=== PATIENT | male | born 1950 | race African-American/Black ===

== ENCOUNTER 2017-05-07 00:43 | Observation (INO) | payer MEDICARE ==
[~2017-05-07] VITALS: Ht 170.2 cm; Wt 100.0 kg
[2017-05-07] VITALS (11 sets, daily range): BP systolic 138–191; BP diastolic 78–102; PULSE 43–62; RESP 16–20; TEMP 97.5–98.4; O2SAT 95–99
[~2017-05-07 00:43] MED LIST: ASPI81TA82 PO; HYZA100T6 PO; KLOR20TA6 PO; SOTA160T16 PO
[2017-05-07] MEDS ORDERED: LOSA100T2 PO (00:59)
[2017-05-07] MEDS ORDERED: ASPI81CH CHEW (00:59)
[2017-05-07] MEDS ORDERED: SOTA120T PO (00:59)
[2017-05-07] MEDS ORDERED: ASPIRIN 81 MG CHEW TAB PO ONE (01:00)
[2017-05-07] MEDS ORDERED: SODIUM CHLORIDE 0.9% FLUSH 10 ML FLUSH IVF PRN (01:00)
[2017-05-07] MEDS ORDERED: NITROGLYCERIN 2% OINT 1 GM PACKET TOP ONE (01:00)
[2017-05-07] MEDS ORDERED: NITROGLYCERIN 0.4 MG SL 25 TABS/BTL SL ONE (01:00)
[2017-05-07 01:18] LABS: AUTOMATED NEUTROPHIL # 3.9 TH/MM3 (1.8-7.7); BASOPHIL # 0.1 TH/MM3 (0-0.2); BASOPHIL % 0.7 % (0.0-2.0); EOSINOPHIL # 0.4 TH/MM3 (0-0.4); HEMATOCRIT 43.4 % (39.0-51.0); LYMPH % 27.1 % (9.0-44.0); MEAN CELL VOLUME 76.9 FL (80.0-100.0); MEAN CORPUSCULAR HEMOGLOBIN 26.8 PG (27.0-34.0); MEAN CORPUSCULAR HGB CONC 34.8 % (32.0-36.0); MONO % 12.3 % (0.0-8.0); NEUT % 53.9 % (16.0-70.0); PLATELET COUNT 163 TH/MM3 (150-450); RED BLOOD COUNT 5.64 MIL/MM3 (4.50-5.90); RED CELL DISTRIBUTION WIDTH 14.4 % (11.6-17.2); WHITE BLOOD COUNT 7.2 TH/MM3 (4.0-11.0)
[2017-05-07 01:19] LABS: HEMO FLAGS AUTO DIFF
--- NOTE | 2017-05-07 01:25 | RADRPT ---
EXAM DATE/TIME: 05/07/2017 01:22 [facility] COMPARISON: CHEST SINGLE AP, July 16, 2015, 3:29. INDICATIONS : Chest pain. MEDICAL HISTORY : Hypertension. AFIB SURGICAL HISTORY : None. ENCOUNTER: Initial ACUITY: 1 day PAIN SCORE: 7/10 LOCATION: Bilateral chest FINDINGS: A single view of the chest demonstrates the lungs to be symmetrically aerated without evidence of mas s, infiltrate or effusion. The cardiomediastinal contours are unremarkable. Osseous structures are intact. CONCLUSION: Normal examination. Willie Dempsey MD on May 07, 2017 at 1:23 Board Certified Radiologist. This report was verified electronically.
[2017-05-07 01:35] LABS: APTT (PATIENT) 27.5 SEC (24.3-30.1); PROTHROMBIN TIME - PATIENT 10.5 SEC (9.8-11.6)
[2017-05-07 01:42] LABS: ALKALINE PHOSPHATASE 73 U/L (45-117); ALT (GPT) 33 U/L (12-78); ANION GAP 6 MEQ/L (5-15); AST (GOT) 26 U/L (15-37); BICARBONATE 33.2 MEQ/L (21.0-32.0); BLOOD UREA NITROGEN 11 MG/DL (7-18); CHLORIDE 104 MEQ/L (98-107); CREATINE KINASE 100 U/L (39-308); GLOMERULAR FILTRATION RATE 71 ML/MIN (>89); POTASSIUM 3.5 MEQ/L (3.5-5.1); SODIUM (NA) 143 MEQ/L (136-145); TOTAL BILIRUBIN ADULT 1.3 MG/DL (0.2-1.0)
[2017-05-07 01:47] LABS: PLATELET ESTIMATE SMEAR NORMAL (NORMAL); PLATELET MORPHOLOGY NORMAL (NORMAL); SCAN/DIFF AUTO DIFF CONFIRMED
--- NOTE | 2017-05-07 02:39 | PD ---
HPI Chief Complaint: Chest Pain Time Seen by Provider: 00:56 Travel History International Travel<30 days: No Contact w/Intl Traveler<30days: No Traveled to known affect area: No History of Present Illness HPI The patient is a 66 year old male who presents to the [facility] emergency department with a history of chest pain that he reports began each morning when he awakened on Friday and then Friday. He reports that this evening the pain again awoke him from sound sleep. He reports that spontaneously the pain resolved previously. He reports that the pain as a pressure sensation in the center of his chest. He reports having a tingling sensation intermittently in the left arm associated with it. He denies having any shortness of breath. He denies having any diaphoresis or nausea. He reports that he was able to work over the last 2 days as well as exercise by walking without experiencing the chest pain recurrence. He denies any history of coronary artery disease. He does however report having a history of atrial fibrillation. He does take low- dose aspirin daily. The patient reports that the pain is worse with taking a deep breath. He denies having any alleviating factors. The patient denies any recent fevers, cough, congestion, neck pain, abdominal pain, vomiting, diarrhea , urinary symptoms, or neurologic symptoms. PFSH Past Medical History Narrative Medical The patient's past medical history is significant for paroxysmal atrial fibrillation, hypertension. The patient denies any prior history of hyperlipidemia or diabetes mellitus. The patient reports that he last had a stress test done many years ago. 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 Hx Anticoagulant Therapy: Yes (ASPIRIN) Atrial Fibrillation: Yes Heart Rhythm Problems: Yes Cardiovascular Problems: Yes Diminished Hearing: No Hypertension: Yes Immunizations Current: Yes Tetanus Vaccination: Unknown Influenza Vaccination: No Past Surgical History Narrative Surgical The patient's past surgical history is reportedly none. Surgical History: No Previous Surgery Social History Alcohol Use: No Tobacco Use: No (QUIT 30 YEARS AGO) Substance Use: No Allergies-Medications (Allergen,Severity, Reaction): Coded Allergies: No Known Allergies (Unverified , 05/07/17) Reported Meds & Prescriptions Reported Meds & Active Scripts Active Reported Sotalol (Sotalol HCl) 120 Mg Tab 120 Mg PO DAILY Losartan-Hydrochlorothiazide 100-25 Mg Tab 1 Tab PO DAILY Aspirin 81 Mg Chew 81 Mg CHEW DAILY Review of Systems Except as stated in HPI: all other systems reviewed are Neg General / Constitutional: No: Fever Eyes: No: Visual changes HENT: No: Headaches Cardiovascular: Positive: Chest Pain or Discomfort, No: Diaphoresis, Dyspnea on exertion Respiratory: No: Cough, Shortness of Breath Gastrointestinal: No: Abdominal Pain Genitourinary: No: Dysuria Musculoskeletal: No: Pain Skin: No Rash Neurologic: Positive: Paresthesia (left hand), No: Weakness, Focal Abnormalities, Change in Mentation, Slurred Speech Psychiatric: No: Depression Endocrine: No: Polydipsia Hematologic/Lymphatic: No: Easy Bruising Physical Exam Narrative General: The patient is a well-developed well-nourished male in no acute distress. Head and Neck exam: Head is normocephalic atraumatic. Eyes: EOMI, pupils are equal round and reactive to light. Nose: Midline septum with pink mucous membranes Mouth: Dentition unremarkable. Moist mucus membranes. Posterior oropharynx is not erythematous. No tonsillar hypertrophy. Uvula midline. Airway patent. Neck: No palpable lymphadenopathy. No nuchal rigidity. No thyromegaly. Cardiovascular: Regular rate and rhythm without murmurs, gallops, or rubs. No pulse deficit to the extremities. Lungs: Clear to auscultation bilaterally. No wheezes, rhonchi, or rales. Abdomen: Soft, without tenderness to palpation in all 4 quadrants of the abdomen. No guarding, rebound, or rigidity. Normal bowel sounds are audible. No tenderness on palpation of McBurney's point. Negative Mendoza sign. Extremities: No clubbing, cyanosis, or edema. 2+ pulses in all 4 extremities. No calf tenderness on palpation. Back: No costovertebral angle tenderness to palpation. Neurologic Exam: Grossly nonfocal. Skin Exam: No rash noted. Intact skin that is warm and dry. Data Data Last Documented VS Vital Signs Date Time Temp Pulse Resp B/P Pulse Ox O2 Delivery O2 Flow Rate FiO2 05/07/17 00:59 58 16 163/85 97 Room Air 05/07/17 00:45 98.4 Orders Electrocardiogram (05/07/17 00:56) B-Type Natriuretic Peptide (05/07/17 00:56) Ckmb (Isoenzyme) Profile (05/07/17 00:56) Complete Blood Count With Diff (05/07/17 00:56) Comprehensive Metabolic Panel (05/07/17 00:56) Magnesium (Mg) (05/07/17 00:56) Prothrombin Time / Inr (Pt) (05/07/17 00:56) Act Partial Throm Time (Ptt) (05/07/17 00:56) Troponin I (05/07/17 00:56) Lipase (05/07/17 00:56) Chest, Single Ap (05/07/17 00:56) Ecg Monitoring (05/07/17 00:56) Bilateral Bp Monitoring (05/07/17 00:56) Iv Access Insert/Monitor (05/07/17 00:56) Oximetry (05/07/17 00:56) Oxygen Administration (05/07/17 00:56) Aspirin Chew (Aspirin Chew) (05/07/17 01:00) Nitroglycerin 2% Oint (Nitroglycerin 2% (05/07/17 01:00) Sodium Chloride 0.9% Flush (Ns Flush) (05/07/17 01:00) Nitroglycerin Sl (Nitrostat Sl) (05/07/17 01:00) Labs Laboratory Tests Test 05/07/17 00:55 White Blood Count 7.2 TH/MM3 Red Blood Count 5.64 MIL/MM3 Hemoglobin 15.1 GM/DL Hematocrit 43.4 % Mean Corpuscular Volume 76.9 FL Mean Corpuscular Hemoglobin 26.8 PG Mean Corpuscular Hemoglobin 34.8 % Concent Red Cell Distribution Width 14.4 % Platelet Count 163 TH/MM3 Mean Platelet Volume 9.6 FL Neutrophils (%) (Auto) 53.9 % Lymphocytes (%) (Auto) 27.1 % Monocytes (%) (Auto) 12.3 % Eosinophils (%) (Auto) 6.0 % Basophils (%) (Auto) 0.7 % Neutrophils # (Auto) 3.9 TH/MM3 Lymphocytes # (Auto) 2.0 TH/MM3 Monocytes # (Auto) 0.9 TH/MM3 Eosinophils # (Auto) 0.4 TH/MM3 Basophils # (Auto) 0.1 TH/MM3 CBC Comment AUTO DIFF Differential Comment AUTO DIFF CONFIRMED Platelet Estimate NORMAL Platelet Morphology Comment NORMAL Red Cell Morphology Comment NORMAL Prothrombin Time 10.5 SEC Prothromb Time International 1.0 RATIO Ratio Activated Partial 27.5 SEC Thromboplast Time Sodium Level 143 MEQ/L Potassium Level 3.5 MEQ/L Chloride Level 104 MEQ/L Carbon Dioxide Level 33.2 MEQ/L Anion Gap 6 MEQ/L Blood Urea Nitrogen 11 MG/DL Creatinine 1.23 MG/DL Estimat Glomerular Filtration 71 ML/MIN Rate Random Glucose 119 MG/DL Calcium Level 8.4 MG/DL Magnesium Level 2.0 MG/DL Total Bilirubin 1.3 MG/DL Aspartate Amino Transf 26 U/L (AST/SGOT) Alanine Aminotransferase 33 U/L (ALT/SGPT) Alkaline Phosphatase 73 U/L Total Creatine Kinase 100 U/L Troponin I LESS THAN 0.02 NG/ML B-Type Natriuretic Peptide 52 PG/ML Total Protein 6.8 GM/DL Albumin 3.5 GM/DL Lipase 134 U/L [facility] Medical Decision Making Medical Screen Exam Complete: Yes Emergency Medical Condition: Yes Medical Record Reviewed: Yes Interpretation(s) Last Impressions Chest X-Ray 05/07/17 0056 Signed Impressions: Service Date/Time: Sunday, May 07, 2017 01:22 - CONCLUSION: Normal examination. Willie Dempsey MD Differential Diagnosis Acute coronary syndrome, versus acid reflux, versus anxiety disorder, versus pneumothorax Narrative Course During the course of the patients emergency department visit, the patients history, examination, and differential diagnosis were reviewed with the patient. The patient had IV access obtained and blood work sent for analysis. The patient was placed on a line installation supervisor with oximetry and blood pressure monitoring. An EKG was done on arrival. The patient's EKG reveals a sinus rhythm with occasional supraventricular premature complexes. The patient's heart rate is 68. QRS duration 90 ms, QTC 411 ms, no acute ST segment elevation or depression. T waves are inverted in V1. The patient was initially provided aspirin 162 mg by mouth 1, nitroglycerin sublingual 1 when necessary chest pain, nitroglycerin 1 inch the chest wall. The patients laboratory studies were reviewed and remarkable for a white count of 7.2, hemoglobin 15.1, platelets 163 with 12.3 monocytes, eosinophils 6.0, CMP is remarkable for CO2 of 33.2, glucose 119, calcium 8.4, total bilirubin 1.3 , initial set of cardiac enzymes are negative, lipase 134, BNP is 52, PT PTT within normal limits. Radiology studies were reviewed and remarkable for a chest x-ray that shows no acute abnormality. The patient was agreeable with the plan to be admitted to the chest pain center for rule out serial cardiac enzyme protocol followed by stress testing. The patients results were discussed with the patient, including the plan of care. I explained that further testing and/ or monitoring is indicated based on the patients history, examination, and/ or laboratory findings. Therefore, I recommended admission for additional evaluation. The patient expressed understanding and was agreeable with this plan. The patient was admitted to the hospital in stable condition and sent to a bed under the care of the chest pain center. Diagnosis Primary Impression: Chest pain, rule out acute myocardial infarction Admitting Information Admitting Physician Requests: Observation Brea Pollard MD May 07, 2017 02:39
[2017-05-07] MEDS ORDERED: ACETAMINOPHEN 500 MG CPLT PO PRN (03:45)
[2017-05-07] MEDS ORDERED: ONDANSETRON HCL 4 MG/2 ML VIAL IV PRN (03:45)
[2017-05-07] MEDS ORDERED: SODIUM CHLORIDE 0.9% FLUSH 10 ML FLUSH IV FLUSH PRN (03:45)
[2017-05-07 05:08] LABS: CREATINE KINASE 79 U/L (39-308)
[2017-05-07 07:38] LABS: CREATINE KINASE 75 U/L (39-308)
[2017-05-07] MEDS ORDERED: PILL SPLITTER OTHER PRN (07:45)
[2017-05-07] MEDS ORDERED: HYDROCHLOROTHIAZIDE 25 MG TAB PO SCH (09:00)
[2017-05-07] MEDS ORDERED: SOTALOL HCL 80 MG TAB PO SCH (09:00)
[2017-05-07] MEDS ORDERED: LOSARTAN 50 MG TAB PO SCH (09:00)
[2017-05-07] MEDS ORDERED: SODIUM CHLORIDE 0.9% FLUSH 10 ML FLUSH IV FLUSH SCH (09:00)
--- NOTE | 2017-05-07 09:12 | HHI.HP ---
[facility] Primary Care Physician Mariangel Demarco MD Chief Complaint Chest pain History of Present Illness This is a 66-year-old male with history of paroxysmal atrial fibrillation and hypertension that presents with a complaint of 2 days of intermittent chest discomfort. He states that they would occur lasting just a couple seconds at a time. Found nothing in particular to bring on the discomforts. Eighth his last stress test was several years ago. He had no associated shortness breath, nausea or diaphoresis with the symptoms. He follows Dr. leal for his paroxysmal atrial fibrillation. Review of Systems General: Patient denies fevers, chills recent, and recent travel HEENT: Patient denies headache, sore throat, difficulty swallowing. Cardiovascular: Has the chest discomfort as mentioned above. Denies sensation of heart beating rapidly or irregularly. No syncope. Denies diaphoresis. Respiratory: Denies shortness of breath or inspirational chest discomfort. Denies coughing wheezing or hemoptysis. GI: Patient denies nausea, vomiting, diarrhea, abdominal pain, bloody stools. Musculoskeletal: Patient denies joint pain or edema. Denies calf pain or edema. Neurovascular: Patient denies numbness, tingling, weakness in extremities. Denies headache. Endocrine: Denies polyuria and polydipsia. Hematologic: Denies easy bruising. Skin: Denies rash or itching. Past Family Social History Allergies: Coded Allergies: No Known Allergies (Unverified , 05/07/17) Past Medical History Paroxysmal atrial fibrillation. Hypertension. Denies hyperlipidemia, diabetes , and known CAD. Past Surgical History Noncontributory. Reported Medications Reported Meds & Active Scripts Active Reported Sotalol (Sotalol HCl) 120 Mg Tab 120 Mg PO DAILY Losartan-Hydrochlorothiazide 100-25 Mg Tab 1 Tab PO DAILY Aspirin 81 Mg Chew 81 Mg CHEW DAILY Active Ordered Medications Current Medications Medications (Trade) Dose Ordered Sig/Rafaela Route Start Time Stop Time Status Last Admin (NS Flush) 2 ml UNSCH PRN IV FLUSH 05/07/17 03:45 (NS Flush) 2 ml BID IV FLUSH 05/07/17 09:00 05/07/17 08:52 (Tylenol) 500 mg Q4H PRN PO 05/07/17 03:45 (Zofran Inj) 4 mg Q6H PRN IV 05/07/17 03:45 (Cozaar) 100 mg DAILY PO 05/07/17 09:00 05/07/17 08:53 (Betapace) 120 mg DAILY PO 05/07/17 09:00 05/07/17 08:52 (Pill Splitter) 1 ea UNSCH PRN OTHER 05/07/17 07:45 (Hydrodiuril) 25 mg DAILY PO 05/07/17 09:00 05/07/17 08:53 Family History Denies family history of CAD. Social History Patient quit smoking about 30 years ago. Denies alcohol or illicit drugs. Physical Exam Vital Signs Vital Signs Date Time Temp Pulse Resp B/P Pulse Ox O2 Delivery O2 Flow Rate FiO2 05/07/17 08:01 98 21 05/07/17 07:46 97.6 52 16 148/93 99 05/07/17 05:17 97.7 58 20 156/87 97 05/07/17 04:00 48 16 156/86 97 Room Air 05/07/17 03:46 97 05/07/17 02:00 57 16 155/78 95 Room Air 05/07/17 00:59 58 16 163/85 97 Room Air 05/07/17 00:53 61 16 189/102 96 05/07/17 00:45 98.4 62 16 191/97 98 Physical Exam GENERAL: This is a well-nourished, well-developed patient, in no apparent distress. Patient speaks in clear complete sentences. Patient is pleasant. HEENT: Head is atraumatic and normocephalic. Neck is supple without lymphadenopathy and trachea is midline. No JVD or carotid bruits. CARDIOVASCULAR: Regular rate and rhythm without murmurs, gallops, or rubs. RESPIRATORY: Clear to auscultation. Breath sounds equal bilaterally. No wheezes , rales, or rhonchi. Chest wall is nontender. No use of accessory muscles. GASTROINTESTINAL: Abdomen is nontender, nondistended. Abdomen soft. No obvious pulsatile mass or bruit. No CVA tenderness. Strong femoral pulses bilaterally. Normal bowel sounds in all quadrants. MUSCULOSKELETAL: Patient is moving upper and lower extremities freely. No calf tenderness or edema, no Homans sign. Strong pulses in upper and lower extremities. NEUROLOGICAL: Patient is alert and oriented. Cranial nerves 2-12 are grossly intact. No focal deficits and speech is clear. SKIN: No rash and turgor is normal. Laboratory Laboratory Tests Test 05/07/17 05/07/17 05/07/17 00:55 04:30 06:40 White Blood Count 7.2 Red Blood Count 5.64 Hemoglobin 15.1 Hematocrit 43.4 Mean Corpuscular Volume 76.9 Mean Corpuscular Hemoglobin 26.8 Mean Corpuscular Hemoglobin 34.8 Concent Red Cell Distribution Width 14.4 Platelet Count 163 Mean Platelet Volume 9.6 Neutrophils (%) (Auto) 53.9 Lymphocytes (%) (Auto) 27.1 Monocytes (%) (Auto) 12.3 Eosinophils (%) (Auto) 6.0 Basophils (%) (Auto) 0.7 Neutrophils # (Auto) 3.9 Lymphocytes # (Auto) 2.0 Monocytes # (Auto) 0.9 Eosinophils # (Auto) 0.4 Basophils # (Auto) 0.1 CBC Comment AUTO DIFF Differential Comment AUTO DIFF CONFIRMED Platelet Estimate NORMAL Platelet Morphology Comment NORMAL Red Cell Morphology Comment NORMAL Prothrombin Time 10.5 Prothromb Time International 1.0 Ratio Activated Partial 27.5 Thromboplast Time Sodium Level 143 Potassium Level 3.5 Chloride Level 104 Carbon Dioxide Level 33.2 Anion Gap 6 Blood Urea Nitrogen 11 Creatinine 1.23 Estimat Glomerular Filtration 71 Rate Random Glucose 119 Calcium Level 8.4 Magnesium Level 2.0 Total Bilirubin 1.3 Aspartate Amino Transf 26 (AST/SGOT) Alanine Aminotransferase 33 (ALT/SGPT) Alkaline Phosphatase 73 Total Creatine Kinase 100 79 75 Troponin I LESS THAN 0.02 LESS THAN 0.02 LESS THAN 0.02 B-Type Natriuretic Peptide 52 Total Protein 6.8 Albumin 3.5 Lipase 134 Result Diagram: 05/07/17 0055 05/07/17 0055 Imaging Last 48 hours Impressions Chest X-Ray 05/07/17 0056 Signed Impressions: Service Date/Time: Sunday, May 07, 2017 01:22 - CONCLUSION: Normal examination. Willie Dempsey MD Course EKGs have sinus rhythm without significant ST segment depressions or elevations. Assessment and Plan Assessment and Plan * Chest pain: Patient has had serial cardiac enzymes and EKGs for ruling out purposes. He has been seen by Dr. Gonzales cardiology in the chest pain center. He underwent a Ambrocio protocol ETT but was only able to walk to get a 78 % of predicted. We have recommended a Lexiscan. Patient will be discharged home if his Lexiscan was nonischemic. He should follow-up with his primary care physician as well as his disability insurance hearing officer. * Hypertension: Continue current medication. Patient is stable at this time. He is agreeable to this plan. Tye Ko May 07, 2017 09:12
[2017-05-07] MEDS ORDERED: REGADENOSON INJ 0.4 MG/5 ML SYR ONE (12:04)
--- NOTE | 2017-05-07 13:49 | RADRPT ---
EXAM DATE/TIME: 05/07/2017 11:44 [facility] COMPARISON: No previous studies available for comparison. INDICATIONS : Chest pain with a history of paroxysmal atrial fibrillation Angina. DOSE: 25.9 mCi Tc99m Myoview at stress. 8.7 mCi Tc99m Myoview at rest. 0.4 mg Lexiscan STRESS SYMPTOMS: Shortness of breath. EJECTION FRACTION: 53% MEDICAL HISTORY : Hypertension. SURGICAL HISTORY : None. ENCOUNTER: Initial ACUITY: 2 days PAIN SCALE: 0/10 LOCATION: Substernal chest TECHNIQUE: The patient underwent pharmacologic stress with infusion of prescribed dose. Continuous ECG tracing was monitored during stress. Gated SPECT imaging was performed after stress and conventional SPECT i maging was performed at rest. The examination was performed on a SPECT/CT scanner, both attenuation and non-corrected datasets were reviewed. FINDINGS: DISTRIBUTION: The maximum perfused segment at stress is in the septal wall. PERFUSION STUDY: The pattern of perfusion at stress is within normal limits. GATED STUDY: There is intact wall motion and thickening without hypokinetic or dyskinetic segments. CONCLUSION: 1. No reversible perfusion defect to suggest stress induced myocardial ischemia identified. RISK CATEGORY: Low (<1% Annual Mortality Rate) Torres Larry MD on May 07, 2017 at 13:47 Board Certified Radiologist. This report was verified electronically.
--- NOTE | 2017-05-07 13:55 | HHI.DCPOC ---
Discharge Care Plan Diagnosis: (1) Chest pain (2) Hypertension (3) Paroxysmal a-fib Goals to Promote Your Health * To prevent worsening of your condition and complications * To maintain your health at the optimal level Directions to Meet Your Goals Take your medications as prescribed Follow your dietary instruction Follow activity as directed Keep your appointments as scheduled Take your immunizations and boosters as scheduled If your symptoms worsen call your PCP, if no PCP go to Urgent Care Center or Emergency Room Smoking is Dangerous to Your Health. Avoid second hand smoke Call the 24-hour hour crisis hotline for domestic abuse at Tye Ko May 07, 2017 13:55
--- NOTE | 2017-05-07 17:20 | EKG ---
Date Performed: 05/07/2017 Time Performed: 00:54:56 PTAGE: 66 years EKG: Sinus rhythm WITH OCCASIONAL SUPRAVENTRICULAR PREMATURE COMPLEXES BORDERLINE ECG Since previous tracing, no signi ficant change noted NO PREVIOUS TRACING DOCTOR: Cintia Gonzales Interpretating Date/Time 05/07/2017 17:18:42
--- NOTE | 2017-05-07 17:21 | TR ---
Date Performed: 05/07/2017 Time Performed: 08:15:07 DOCTOR: Cintia Gonzales DRUG LIST: CLINICAL HISTORY: CP R/O MA REASON FOR TEST: REASON FOR ENDING: OBSERVATION: CONCLUSION: ISABELLA PROTOCOL. PT ASKED TO STOP SECONDARY TO SOB WITH HR 117(76%). DENIES CP.Maximu m DO=912 % Max HR Achieved=78.0% Maximum VD=873/90 Total Exercise Time=3:12 COMMENTS:
--- NOTE | 2017-05-07 17:21 | EKG ---
Date Performed: 05/07/2017 Time Performed: 04:45:26 PTAGE: 66 years EKG: SINUS BRADYCARDIA NONSPECIFIC T-WAVE ABNORMALITY BORDERLINE ECG Since PREVIOUS TRACING , no significant change noted PREVIOUS TRACIN09/14/2015 23.58 DOCTOR: Cintia Gonzales Interpretating Date/Time 05/07/2017 17:19:07
--- NOTE | 2017-05-07 17:24 | TR ---
Date Performed: 05/07/2017 Time Performed: 12:29:55 DOCTOR: Cintia Gonzales DRUG LIST: CLINICAL HISTORY: REASON FOR TEST: REASON FOR ENDING: OBSERVATION: CONCLUSION: Lexiscan stress test was performed under standard four minute protocol. Radionuclid e was injected one minute prior to ending the test. No electrocardiographic abormalities were present to suggest ischemia. Nuclear imaging and interpretation are pending. COMMENTS:
== END 2017-05-07 14:38 | disposition home or self-care (01) ==
LOC: NEPE 00:43 → NEDA 03:11 → NEPHCDU 05:12
PROVIDERS: ADMIT Internal Medicine Interventional Cardiology; ATTEND Internal Medicine Interventional Cardiology
DX: R07.89 Other chest pain (principal); I48.0 Paroxysmal atrial fibrillation; I10 Essential (primary) hypertension; Z87.891 Personal history of nicotine dependence; Z79.82 Long term (current) use of aspirin
CPT/HCPCS: 71010; 78452; 80053; 82550; 83690; 83735; 83880; 84484; 85025; 85610; 85730; 93005; 93017; 99285; A9502; G0378; J2785

== ENCOUNTER 2018-01-15 03:28 | Emergency (ER) | payer MEDICARE ==
[2018-01-15] VITALS (8 sets, daily range): BP systolic 149–228; BP diastolic 84–117; PULSE 55–67; RESP 15–18; TEMP 97.6; O2SAT 97–99
[~2018-01-15] VITALS: Ht 170.2 cm; Wt 98.0 kg
[~2018-01-15 03:28] MED LIST changes: +ASPI-516 CHEW; -ASPI81TA82 PO; -HYZA100T6 PO; -KLOR20TA6 PO; +LOSA100T2 PO; +SOTA120T PO; -SOTA160T16 PO
[2018-01-15] MEDS ORDERED: LOSA100T3 PO (03:49)
[2018-01-15 04:04] LABS: AUTOMATED NEUTROPHIL # 3.6 TH/MM3 (1.8-7.7); BASOPHIL % 0.7 % (0.0-2.0); EOSINOPHIL # 0.3 TH/MM3 (0-0.4); EOSINOPHIL % 4.5 % (0.0-4.0); HEMATOCRIT 42.1 % (39.0-51.0); HEMOGLOBIN 14.9 GM/DL (13.0-17.0); LYMPH % 31.4 % (9.0-44.0); LYMPHOCYTE # 2.2 TH/MM3 (1.0-4.8); MEAN CELL VOLUME 77.8 FL (80.0-100.0); MEAN CORPUSCULAR HEMOGLOBIN 27.5 PG (27.0-34.0); MEAN CORPUSCULAR HGB CONC 35.4 % (32.0-36.0); MEAN PLATELET VOLUME 9.2 FL (7.0-11.0); MONO % 13.3 % (0.0-8.0); MONOCYTE # 0.9 TH/MM3 (0-0.9); NEUT % 50.1 % (16.0-70.0); PLATELET COUNT 166 TH/MM3 (150-450); RED BLOOD COUNT 5.41 MIL/MM3 (4.50-5.90); RED CELL DISTRIBUTION WIDTH 14.3 % (11.6-17.2); WHITE BLOOD COUNT 7.1 TH/MM3 (4.0-11.0)
[2018-01-15] MEDS ORDERED: hydrALAZINE HCL 20 MG/ML VIAL IV PUSH ONE (04:15)
--- NOTE | 2018-01-15 04:44 | RADRPT ---
EXAM DATE/TIME: 01/15/2018 04:31 [facility] COMPARISON: No previous studies available for comparison. INDICATIONS : Chest pain. MEDICAL HISTORY : Hypertension. SURGICAL HISTORY : None. ENCOUNTER: Initial ACUITY: 2 days PAIN SCORE: 4/10 LOCATION: Bilateral chest FINDINGS: PA and lateral views of the chest demonstrate the lungs to be symmetrically aerated without evidence of mass, infiltrate or effusion. The cardiomediastinal contours are unremarkable. Osseous structure s are intact. CONCLUSION: Normal examination. Frantz Randolph MD on January 15, 2018 at 4:43 Board Certified Radiologist. This report was verified electronically.
--- NOTE | 2018-01-15 04:47 | PD ---
HPI Chief Complaint: Hypertension Time Seen by Provider: 03:44 Travel History International Travel<30 days: No Contact w/Intl Traveler<30days: No Traveled to known affect area: No History of Present Illness HPI Patient is a 67-year-old male who has a history of hypertension and he takes losartan. Tonight he felt his pressure was high by feeling of tenseness in his head he reports. Patient checked his pressure at home and it was 195/100. He checked his pressure multiple times and it remained to be high 195 systolic he comes to the ER he denies chest pain he denies shortness of breath he is not diaphoretic but his pressure is 193/109 here in the ER [facility] Past Medical History Hx Anticoagulant Therapy: Yes (ASPIRIN) Atrial Fibrillation: Yes Heart Rhythm Problems: Yes (A-fib) Cardiac Catheterization: No Cardiovascular Problems: Yes Diabetes: No Diminished Hearing: No Hypertension: Yes Immunizations Current: Yes Tetanus Vaccination: Unknown Influenza Vaccination: No Past Surgical History Surgical History: No Previous Surgery Coronary Artery Bypass Graft: No Social History Alcohol Use: No Tobacco Use: No (QUIT 30 YEARS AGO) Substance Use: No Allergies-Medications (Allergen,Severity, Reaction): Coded Allergies: No Known Allergies (Unverified Adverse Reaction, Unknown, 01/15/18) Reported Meds & Prescriptions Reported Meds & Active Scripts Active Clonidine (Clonidine HCl) 0.1 Mg Tab 0.1 Mg PO BID Reported Losartan-Hydrochlorothiazide 100-12.5 Mg Tab 1 Tab PO DAILY Sotalol (Sotalol HCl) 120 Mg Tab 120 Mg PO DAILY Aspirin 81 Mg Chew 81 Mg CHEW DAILY Review of Systems Except as stated in HPI: all other systems reviewed are Neg HENT: Positive: Headaches Physical Exam Narrative GENERAL: No apparent distress nondiaphoretic nontoxic-appearing SKIN: Warm and dry. HEAD: Atraumatic. Normocephalic. EYES: Pupils equal and round. No scleral icterus. No injection or drainage. ENT: No nasal bleeding or discharge. Mucous membranes pink and moist. NECK: Trachea midline. No JVD. CARDIOVASCULAR: Regular rate and rhythm. Blood pressure pressure is 193/109 RESPIRATORY: No accessory muscle use. Clear to auscultation. Breath sounds equal bilaterally. GASTROINTESTINAL: Abdomen soft, non-tender, nondistended. Hepatic and splenic margins not palpable. MUSCULOSKELETAL: Extremities without clubbing, cyanosis, or edema. No obvious deformities. NEUROLOGICAL: Awake and alert. No obvious cranial nerve deficits. Motor grossly within normal limits. Five out of 5 muscle strength in the arms and legs. Normal speech. PSYCHIATRIC: Appropriate mood and affect; insight and judgment normal. Data Data Last Documented VS Orders Orders Complete Blood Count With Diff (01/15/18 03:45) Comprehensive Metabolic Panel (01/15/18 03:45) Troponin I (01/15/18 03:45) Lipase (01/15/18 03:45) Electrocardiogram (01/15/18 ) Chest, Pa & Lat (01/15/18 ) Hydralazine Inj (Apresoline Inj) (01/15/18 04:15) Orthostatic Vital Signs (01/15/18 05:26) Ed Discharge Order (01/15/18 05:46) Labs Laboratory Tests Test 01/15/18 03:50 White Blood Count 7.1 TH/MM3 Red Blood Count 5.41 MIL/MM3 Hemoglobin 14.9 GM/DL Hematocrit 42.1 % Mean Corpuscular Volume 77.8 FL Mean Corpuscular Hemoglobin 27.5 PG Mean Corpuscular Hemoglobin Concent 35.4 % Red Cell Distribution Width 14.3 % Platelet Count 166 TH/MM3 Mean Platelet Volume 9.2 FL Neutrophils (%) (Auto) 50.1 % Lymphocytes (%) (Auto) 31.4 % Monocytes (%) (Auto) 13.3 % Eosinophils (%) (Auto) 4.5 % Basophils (%) (Auto) 0.7 % Neutrophils # (Auto) 3.6 TH/MM3 Lymphocytes # (Auto) 2.2 TH/MM3 Monocytes # (Auto) 0.9 TH/MM3 Eosinophils # (Auto) 0.3 TH/MM3 Basophils # (Auto) 0.0 TH/MM3 CBC Comment DIFF FINAL Differential Comment Blood Urea Nitrogen 16 MG/DL Creatinine 1.23 MG/DL Random Glucose 94 MG/DL Total Protein 6.8 GM/DL Albumin 3.6 GM/DL Calcium Level 9.0 MG/DL Alkaline Phosphatase 69 U/L Aspartate Amino Transf (AST/SGOT) 13 U/L Alanine Aminotransferase (ALT/SGPT) 18 U/L Total Bilirubin 1.5 MG/DL Sodium Level 138 MEQ/L Potassium Level 3.7 MEQ/L Chloride Level 102 MEQ/L Carbon Dioxide Level 28.5 MEQ/L Anion Gap 8 MEQ/L Estimat Glomerular Filtration Rate 71 ML/MIN Troponin I LESS THAN 0.02 NG/ML Lipase 132 U/L MDM Medical Decision Making Medical Screen Exam Complete: Yes Emergency Medical Condition: Yes Interpretation(s) EKG 53 BPM sinus [place] no ectopy , Differential Diagnosis HTN essential , vs Pulmonary HTN , vs uncontrolle dHTN lac of meds , vs salt intake overload otherr Narrative Course labs ekg and observation and pt is given meds to reduce bp in ER and discharged with clonidine to add to his losartan until he can reach his PCP for adjustment of BP meds Diagnosis Primary Impression: Hypertension Qualified Codes: I10 - Essential (primary) hypertension Patient Instructions: General Instructions, Hypertension (ED) Scripts Clonidine (Clonidine) 0.1 Mg Tab 0.1 MG PO BID for Blood Pressure Management, #20 TAB 0 Refills Prov: Marcio Cueva MD 01/15/18 Disposition: 01 DISCHARGE HOME Condition: Good Marcio Cueva MD Jan 15, 2018 04:47
[2018-01-15 04:49] LABS: ALBUMIN 3.6 GM/DL (3.4-5.0); AST (GOT) 13 U/L (15-37); BICARBONATE 28.5 MEQ/L (21.0-32.0); BLOOD UREA NITROGEN 16 MG/DL (7-18); CHLORIDE 102 MEQ/L (98-107); CREATININE 1.23 MG/DL (0.60-1.30); GLOMERULAR FILTRATION RATE 71 ML/MIN (>89); GLUCOSE,RANDOM 94 MG/DL (74-106); SODIUM (NA) 138 MEQ/L (136-145)
[2018-01-15 04:51] LABS: ALT (GPT) 18 U/L (12-78)
[2018-01-15 04:55] LABS: ALKALINE PHOSPHATASE 69 U/L (45-117); TOTAL BILIRUBIN ADULT 1.5 MG/DL (0.2-1.0); TOTAL PROTEIN 6.8 GM/DL (6.4-8.2); TROPONIN I LESS THAN 0.02 NG/ML (0.02-0.05)
[2018-01-15] MEDS ORDERED: CLON0.1T PO (05:41)
--- NOTE | 2018-01-15 14:46 | EKG ---
Date Performed: 01/15/2018 Time Performed: 03:55:03 PTAGE: 67 years EKG: SINUS BRADYCARDIA POSSIBLE RIGHT VENTRICULAR CONDUCTION DELAY BORDERLINE ECG NO PREVIOUS TRACING DOCTOR: Ronaldo Marie Interpretating Date/Time 01/15/2018 14:38:26
== END 2018-01-15 06:12 | disposition home or self-care (01) ==
LOC: NEPE 03:28
DX: I10 Essential (primary) hypertension (principal); R94.31 Abnormal electrocardiogram [ECG] [EKG]; I48.91 Unspecified atrial fibrillation; Z79.82 Long term (current) use of aspirin
CPT/HCPCS: 71046; 80053; 83690; 84484; 85025; 93005; 96374; 99285; J0360